=== PATIENT | female | born 1965 | race Caucasian/White ===

== ENCOUNTER 2019-01-18 05:12 | Emergency (ER) | payer MEDICAID, MEDICARE ==
[~2019-01-18] VITALS: Ht 162.6 cm; Wt 57.1 kg
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
[2019-01-18] MEDS ORDERED: LORazepam 1MG TABLET ONE (06:18)
--- NOTE | 2019-01-18 06:21 | NUR ---
PT MEDICATED PER EMAR. PT TOLERATED WELL.
[2019-01-18] MEDS ORDERED: LORazepam 1MG TABLET PO ONE (06:30)
--- NOTE | 2019-01-18 06:49 | NUR ---
REPORT GIVEN TO SHARON HERNANDEZ.
--- NOTE | 2019-01-18 06:50 | NUR ---
REPORT FROM CARINA HERNANDEZ, ASSUME CARE OF PT AT THS TIME.
--- NOTE | 2019-01-18 07:00 | NUR ---
PT SLEEPING, AWAITING SW TO SEE.
--- NOTE | 2019-01-18 07:17 | NUR ---
ED DIET TRAY ORDERED. PT UPDATED ON POC, SW NOT IN UNTIL 1100.
--- NOTE | 2019-01-18 07:54 | NUR ---
MEAL TRAY PROVIDED. CALL LIGHT WITHIN REACH.
--- NOTE | 2019-01-18 08:45 | NUR ---
PHONE NUMBERS OF FRIENDS AND CAMP OBTAINED FROM PT. 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
--- NOTE | 2019-01-18 09:11 | NUR ---
CALLS PLACED AND MSGS LEFT FOR FRIENDS OF PATIENTS THAT SHE THINKS MAY BE ABLE TO HELP HER.
[2019-01-18] MEDS ORDERED: QUETIAPINE 100MG TABLET ONE (09:54)
--- NOTE | 2019-01-18 09:57 | NUR ---
PT VERY ANXIOUS, LEAVING ROOM STATING "I HAVE TO GET OUT OF HERE, MY ANXIETY IS REALLY BAD, PEOPLE ARE GOING TO BE WORRIED ABOUT ME". ABLE TO REDIRECT PT TO ROOM, MED ORDERED BY ERP FOR ANXIETY-PROVIDED TO PT. PT REASSURED THAT CALLS ARE BEING MADE, SW IN SOON. WATER PROVIDED AND BED REPOSITIONED PER REQUEST, LIGHTS DIMMED, DOOR CLOSED FOR PT.
[2019-01-18] MEDS ORDERED: QUETIAPINE 100MG TABLET PO ONE (10:00)
--- NOTE | 2019-01-18 10:27 | NUR ---
call to Case Management placed.
--- NOTE | 2019-01-18 10:46 | NUR ---
PT SLEEPING, CONTINUE TO AWAIT CALL BACK FROM FRIENDS AND SW.
--- NOTE | 2019-01-18 11:04 | NUR ---
[facility] [phone], PATIENTS ROOM MATE WILL ATTEMPT TO BUY THIS PATIENT A TRAIN TICKET BACK HOME. PHONE NUMBER GIVEN WITH PRIMARY NURSE'S NAME.
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
--- NOTE | 2019-01-18 11:15 | NUR ---
SW IN TO SPEAK WITH PT.
--- NOTE | 2019-01-18 11:23 | NUR ---
GLORIA PIKE - Fall Risk Medications present and NOT receiving anticoagulants. Patient took lorazepam and seroquel. Signed: 01/18/19 at 1124 by Janelle NOE
--- NOTE | 2019-01-18 11:30 | NUR ---
PT TO CT WITH SITTER.
--- NOTE | 2019-01-18 11:34 | NUR ---
Roomate Misty states train does not return home until tomorrow. Misty will drive from [place] today to pick pt up.
--- NOTE | 2019-01-18 11:55 | NUR ---
PT BACK FROM CT, SITTER AT BS.
--- NOTE | 2019-01-18 12:31 | NUR ---
PT RESTING, NAD. SITTER IN ROOM.
--- NOTE | 2019-01-18 13:17 | NUR ---
PT SLEEPING, NAD, SITTER IN ROOM. VSS.
[2019-01-18 13:27] VITALS: BP 107/70
--- NOTE | 2019-01-18 14:23 | NUR ---
PT THREW MEAL TRAY ACROSS ROOM BECAUSE IT WAS NOT THE GRILLED CHEESE SHE ORDERED. RESET EXPECTATION.
--- NOTE | 2019-01-18 15:13 | NUR ---
PT SLEEPING, NAD. SITTER IN ROOM.
--- NOTE | 2019-01-18 16:00 | NUR ---
REPORT TO CHAGO HERNANDEZ, PT MOVED TO ROOM 41.
--- NOTE | 2019-01-18 16:42 | NUR ---
Patient and caregiver given discharge instructions and they have confirmed that they understand the instructions. Patient ambulatory with steady gait and balance to d/c. Pt's roommate Misyt arrived to drive pt home. Pt left with all personal belongings and d/c paperwork. Pt encouraged to return if symptoms worsen or condition changes.
== END 2019-01-18 16:46 | disposition home or self-care (01) ==
LOC: ED 08:38
DX: M54.2 Cervicalgia (principal); R42 Dizziness and giddiness; W01.0XXA Fall on same level from slipping, tripping and stumbling without subsequent striking against object, initial encounter; Y93.89 Activity, other specified; Y92.89 Other specified places as the place of occurrence of the external cause; Y99.8 Other external cause status
CPT/HCPCS: 70450; 72125; 76770; 99284